=== PATIENT | female | born 1940 | race Caucasian/White ===

== ENCOUNTER → 2016-12-19 | Outpatient (CLI) | payer OTHER ==
--- NOTE | 2016-12-19 13:51 | DX ---
Cervical spine, 3 views. December 19, 2016. HISTORY: Neck pain. FINDINGS: Marked intervertebral disk height loss at C3-C4, C4-C5, C5-C6, C6/C7 compatible with multi segment degenerative disk disease. Extensive facet degenerative arthropathy is also present throughou t the same levels. Minimal degenerative retrolisthesis of C3 upon C4. No fracture identified. IMPRESSION: 1. Advanced multilevel cervical degenerative changes, without fracture identified.
== END ==
LOC: BMCIMAGING 13:09
PROVIDERS: ATTEND Family Medicine
DX: M54.2 Cervicalgia (principal); M50.30 Other cervical disc degeneration, unspecified cervical region

== ENCOUNTER 2017-04-14 09:58 | Emergency (ER) | payer OTHER ==
--- NOTE | 2017-04-14 10:30 | CPEKG ---
Heart Rate: 72 RR Interval: 833 P-R Interval: 164 QRSD Interval: 78 QT Interval: 412 QTC Interval: 451 P [place]: 62 QRS [place]: -27 T Wave [place]: 46 EKG Severity - BORDERLINE ECG - EKG Impression: SINUS RHYTHM EKG Impression: PROBABLE LEFT ATRIAL ABNORMALITY EKG Impression: BORDERLINE LEFT AXIS DEVIATION Electronically Signed By: Reina Carreno 14-Apr-2017 14:55:37
--- NOTE | 2017-04-14 10:32 | EDPHY ---
H & P Time Seen by Provider: 04/14/17 10:06 HPI/ROS: CHIEF COMPLAINT: Amnesia HISTORY OF PRESENT ILLNESS: The patient is a 77-year-old female presenting with an episode of amnesia this morning. The patient went downstairs and saw that her outdoor umbrella was folded up. The patient states she recalls struggling with the umbrella, but could not recall when they folded it up. She became quite concerned that she could not remember when she folded up the umbrella. Her told her they put it down this morning. She has no other memory defecits and remembers the remainder of the morning. She states she took a 1/2 tablet of Benadryl last night to help with sleep. She did not know it was Benadryl and states that Benadryl has caused her trouble with memory in the past. She denies difficulty with speech. No LOZANO, extremity weakness or numbness. REVIEW OF SYSTEMS: A comprehensive 10 point review of systems is otherwise negative aside from elements mentioned in the history of present illness. Past Medical/Surgical History: , Hysterectomy, Cardiac ablation. Social History: . Smoking Status: Never smoked Physical Exam: General Appearance: Alert, pleasant Eyes: Pupils equal and round, no conjunctival pallor or injection ENT, Mouth: Mucous membranes moist Neck: Normal inspection Respiratory: Lungs are clear to auscultation Cardiovascular: Regular rate and rhythm Gastrointestinal: Abdomen is soft and non-tender Neurological: Alert, oriented x3, cranial nerves II through XII intact, motor 5 /5, sensory intact to light touch, normal gait Skin: Warm and dry, no rash Extremities: Nontender, no pedal edema Psychiatric: Anxious Constitutional: Initial Vital Signs Temperature (C) 36.5 C 04/14/17 10:02 Heart Rate 79 04/14/17 10:02 Respiratory Rate 18 04/14/17 10:02 Blood Pressure 172/86 H 04/14/17 10:02 O2 Sat (%) 95 04/14/17 10:02 O2 Delivery Mode Room Air Allergies/Adverse Reactions: codeine Allergy (Verified 04/14/17 10:01) NAUSEA Home Medications: Medication Instructions Recorded Aspirin 81mg (*) 04/14/17 Pepcid 04/14/17 Medical Decision Making - Diagnostics EKG Interpretation: The 12 lead EKG was interpreted by myself. See hard copy and/or "tracemaster" electronic copy for interpretation: Sinus rhythm. No ST or T segment changes. ED Course/Re-evaluation: The patient presents with an isolated episode of memory loss. The patient has a normal neurological exam. I suspect that the Benadryl caused her symptoms, as Benadryl has done so in the past. I do not suspect CVA or TIA. Plan for CT head. CT head is normal. CBC and Chemistry are normal. I discussed findings with the patient. Plan to discharge home. Differential Diagnosis: Altered mental status including but not limited to hypoglycemia, infectious process, electrolyte abnormality, head injury and intoxicants. - Data Points Laboratory Results: Laboratory Results 04/14/17 10:06 04/14/17 10:06 Departure - Departure Disposition: Home, Routine, Self-Care Clinical Impression: memory loss due to medication Condition: Good Instructions: Additional Information Additional Instructions: Avoid taking Benadryl and other antihistamines. Return for recurrent symptoms or any concerns. Followup with your primary care physician. Referrals: MONA ABDULLAHI, CHANTELLE [Non Staff and Non MD] - 5-7 days, call for appt. Report Scribed for: Reina Carreno Report Scribed by: Maranda Ortega Date of Report: 04/14/17 Time of Report: 10:37 Physician Review and Approval Statement: 04/14/17 10:38 Portions of this note were transcribed by a medical care administrator. I personally performed the history, physical exam, and medical decision-making; and confirmed the accuracy of the information in the transcribed note.
[2017-04-14 10:36] LABS: % IMMATURE GRANULYOCYTES 0.5 % (0.0-1.1); ABSOLUTE IMMATURE GRANULOCYTES 0.02 10^3/uL (0.00-0.10); ADD DIFF? NO; ADD MORPH? NO; ADD SCAN? NO; ATYPICAL LYMPHOCYTE FLAG 10 (0-99); FRAGMENT RBC FLAG 0 (0-99); HEMATOCRIT 45.6 % (38.0-47.0); HEMOGLOBIN 15.2 g/dL (12.6-16.3); LEFT SHIFT FLG 0 (0-99); LIPEMIA HEMOLYSIS FLAG 80 (0-99); MEAN CELL HEMOGLOBIN 31.9 pg (27.9-34.1); MEAN CELL HEMOGLOBIN CONCENTR. 33.3 g/dL (32.4-36.7); MEAN CELL VOLUME 95.6 fL (81.5-99.8); MEAN PLATELET VOLUME 9.8 fL (8.7-11.7); PLATELET CLUMPS FLAG 0 (0-99); PLATELET COUNT 217 10^3/uL (150-400); RED BLOOD CELL COUNT 4.77 10^6/uL (4.18-5.33); RED CELL DISTRIBUTION WIDTH 12.7 % (11.5-15.2)
[2017-04-14 10:44] LABS: ANION GAP 11 mEq/L (8-16); CALCIUM 9.8 mg/dL (8.5-10.4); CARBON DIOXIDE 28 mEq/l (22-31); CHLORIDE 106 mEq/L (97-110); CREATININE 0.7 mg/dL (0.6-1.0); GLOMERULAR FILTRATION RATE > 60; GLUCOSE 112 mg/dL (70-100); SODIUM 145 mEq/L (134-144)
[2017-04-14 10:55] LABS: TROPONIN I 0.012 ng/mL (0-0.034)
[2017-04-14 11:28] VITALS: BP 130/64; PULSE 66; RESP 16; TEMP 97.9; O2SAT 96
== END 2017-04-14 11:32 | disposition home or self-care (01) ==
DX: R41.3 Other amnesia (principal); T45.0X5A Adverse effect of antiallergic and antiemetic drugs, initial encounter; Z79.82 Long term (current) use of aspirin

== ENCOUNTER 2017-11-22 17:28 | Emergency (ER) | payer OTHER ==
--- NOTE | 2017-11-22 18:00 | EDPHY ---
H & P Time Seen by Provider: 11/22/17 17:40 HPI/ROS: Chief complaint. Possible DVT HPI. Patient is 77-year-old female presents emergency department with left leg calf pain for 10 days. It is associated with some swelling. She has also noted some bruising all long the ankle. No symptoms above the knee. No chest discomfort or shortness of breath. Symptoms began after and ankle sprain type injury. No similar symptoms or previous DVT. No recent travel. ROS Constitutional. no fever/chills, no weakness Eyes. no problems with vision ENT. no sore throat, no nasal drainage Cardiovascular. no chest pain Respiratory. no shortness of breath, no cough Abdominal. no abdominal pain, no nausea/vomiting, no diarrhea . no problems urinating MS. Left calf pain and swelling Skin. no rash Lymph. no swollen glands Neuro. no headache, no dizziness, no difficulty walking or with speech Past Medical/Surgical History: Past medical history , hysterectomy, cardiac ablation Social History: , nonsmoker, no alcohol Smoking Status: Never smoked Physical Exam: General Appearance: Alert well-developed female mild distress vital signs stable Eyes: Pupils equal and round no pallor or injection. ENT, Mouth: Mucous membranes are moist. Respiratory: There are no retractions, lungs are clear to auscultation. Cardiovascular: Regular rate and rhythm. Gastrointestinal: Abdomen is soft and nontender, no masses, bowel sounds normal. Neurological: Awake and alert, sensory and motor exams grossly normal. Skin: Warm and dry, no rashes. Musculoskeletal: Neck is supple nontender. Extremities left calf is tender over the posterior calf. Mild swelling. Some bruising around the ankle. Pulses are normal Psychiatric: Patient is oriented X 3, there is no agitation. Constitutional: Initial Vital Signs Temperature (C) 36.4 C 11/22/17 17:31 Heart Rate 60 11/22/17 17:31 Respiratory Rate 14 11/22/17 17:31 Blood Pressure 142/72 H 11/22/17 17:31 O2 Sat (%) 98 11/22/17 17:31 O2 Delivery Mode Room Air Allergies/Adverse Reactions: codeine Allergy (Verified 04/14/17 10:01) NAUSEA Home Medications: Medication Instructions Recorded Aspirin 81mg (*) 04/14/17 Pepcid 04/14/17 Medical Decision Making - Diagnostics Imaging Results: Ultrasound shows no evidence of DVT ED Course/Re-evaluation: Re-evaluation at 7:20 p.m.. Patient is stable. She and I discussed imaging studies treatment plan including criteria for return importance of follow-up further evaluation. She expresses understanding and agreement Differential Diagnosis: Considered DVT, calf strain. Departure - Departure Disposition: Home, Routine, Self-Care Clinical Impression: Pain of left calf Condition: Good Instructions: Muscle Strain (ED) Additional Instructions: Elevation. Easy activity. Tylenol and ibuprofen for discomfort. Return for worsening symptoms. Re-evaluation 4-5 days if not improving Referrals: [facility]A [facility]BDULL[facility]I [facility] [Primary Care Provider] - 3-4 days, if not improved
[2017-11-22 19:41] VITALS: BP 146/89; PULSE 76; RESP 15; TEMP 97.9; O2SAT 94
== END 2017-11-22 19:40 | disposition home or self-care (01) ==
DX: M79.605 Pain in left leg (principal); Z79.82 Long term (current) use of aspirin

== ENCOUNTER → 2018-03-03 | Outpatient (CLI) | payer OTHER | LOC: BMCIMAGING 14:22 | PROVIDERS: ATTEND Nurse Practitioner Family | DX: Z12.31 Encounter for screening mammogram for malignant neoplasm of breast (principal) ==

== ENCOUNTER → 2018-04-03 | Outpatient (CLI) | payer OTHER | LOC: BMCIMAGING 09:29 | PROVIDERS: ATTEND Nurse Practitioner Family | DX: R92.8 Other abnormal and inconclusive findings on diagnostic imaging of breast (principal) ==

== ENCOUNTER → 2019-03-09 | Outpatient (CLI) | payer OTHER | LOC: BMCIMAGING 14:28 | PROVIDERS: ATTEND Nurse Practitioner Family | DX: Z12.31 Encounter for screening mammogram for malignant neoplasm of breast (principal) ==